=== PATIENT | female | born 1990 | race Caucasian/White ===

== ENCOUNTER 2016-10-28 17:07 | Inpatient (IN) | payer OTHER ==
[~2016-10-28] VITALS: Ht 160 cm; Wt 49.0 kg
--- NOTE | ~2016-10-28 | HC ---
[facility] [place] [address] CONSULTATION Name: BREANNE MORRIS Room #: 533-P ADM IN M.R.#: [id number] Admission: 10/28/16 Attend Phys: Tre Mcfadden MD Discharge: Date of : 90 Report #: [id number] THIS REPORT FOR: //name// CC: JERRY physician/PCP Tre Mcfadden DATE OF SERVICE: 10/29/2016 IDENTIFICATION: Psychiatric consultation is requested for depression and opioid dependence. HISTORY OF PRESENT ILLNESS: The patient is a 26-year-old single, unemployed female known to me from a consultation in September. She has a history of amphetamine and IV heroin dependence and this has been complicated by a lengthy hospital stay for endocarditis, paraspinal myositis, hepatitis, and encephalitis. During her consultation with me, the patient essentially denied all psychiatric complaints and declined psychiatric intervention. She did continue to follow up with Dr. Mckeon during her hospital stay here and he prescribed Prozac. The patient left hospital against medical advice 2 days ago and now returns back for further treatment. On interview, the patient is tolerating the Prozac but denies any benefit for it thus far. She admits that she relapsed on substances during her absence from the hospital. Today, she reports that she does not want to use any longer, but she does not wish to pursue inpatient rehabilitation. She states that she has tried that previously without benefit. She also reports that despite being in the hospital for several weeks, the lengthy period of sobriety was not beneficial and she immediately relapsed. She has also tried Suboxone in the past and she denies any particular benefit from that. Today, she declines any further psychiatric intervention. ALLERGIES: None. MEDICATIONS: Reviewed and include Prozac 40 mg daily. PAST MEDICAL HISTORY: Endocarditis, encephalitis, paraspinal myositis, hepatitis. FAMILY HISTORY: Noncontributory. SOCIAL HISTORY: The patient lives in her mother's basement. She has lost custody of her 5-year-old daughter. She smoked cigarettes in addition to abusing IV amphetamines and heroin. MENTAL STATUS EXAMINATION: Fair hygiene, polite, cooperative, good eye contact. Speech regular rate and rhythm. Thought process linear, logical, and coherent. [facility] [address] [place] [address] CONSULTATION Name: BREANNE MORRIS Room #: 533-P [facility] IN M.R.#: [id number] Admission: 10/28/16 Attend Phys: Tre Mcfadden MD Discharge: Date of : 90 Report #: [id number] No hallucinations or delusions. No suicidal or homicidal ideation. Alert and oriented x3. Insight and judgment fair. DIAGNOSES: 1. Opioid dependence. 2. Amphetamine dependence. 3. Major depressive disorder, recurrent, moderate. PLAN: Continue Prozac. Encouraged the patient to stay the course with Prozac and emphasized the length of time needed for antidepressants to begin having efficacy. Engage the patient in motivational interviewing regarding sobriety. She is in the contemplative stage at best. She declines inpatient rehabilitation despite our encouragement. I did provide her with outpatient resources for chemical dependency treatment. Thank you for this consultation. Please contact me with any further questions or concerns. By: [id number] Eda Werner MD /nt
--- NOTE | ~2016-10-28 | EKG ---
[place] [address] [facility] [place] [address] ELECTROCARDIOGRAM REPORT Name: BREANNE MORRIS Room #: 533-P ADM IN M.R.#: [id number] Admission: 10/28/16 Attend Phys: Tre Mcfadden MD Discharge: Date of : 90 Report #: [id number] THIS REPORT FOR: //name// 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 : 1990 Requested By: Hunter Santizo Order Number: [id number] MD: Sarkis Zavala Measurements Intervals [place] Rate: 73 P: 63 NV: 137 QRS: 64 QRSD: 86 T: 57 QT: 440 QTc: 485 Interpretive Statements Sinus rhythm Borderline T abnormalities, anterior leads Borderline prolonged QT interval Compared to ECG 10/11/2016 07:35:10 T-wave abnormality now present Electronically Signed On 10-29-2016 9:01:34 CDT by Sarkis Zavala [email or web address] <ELECTRONICALLY SIGNED> By: Sarkis Zavala MD, [facility] 10/29/1601 10 10 Sarkis Zavala MD, [facility] /EPI
--- NOTE | ~2016-10-28 | HC ---
[facility] [place] [address] CONSULTATION Name: BREANNE MORRIS Room #: 533-P [facility] IN M.R.#: [id number] Admission: 10/28/16 Attend Phys: Tre Mcfadden MD Discharge: 10/30/16 Date of : 90 Report #: [id number] THIS REPORT FOR: //name// CC: JERRY physician/PCP Tre Mcfadden REASON FOR CONSULTATION: Endocarditis treatment. 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 She had completed 5 weeks of IV antibiotic therapy by 10/26/2016. She then left A to go do drugs. She returned to the emergency room last evening with facial and lower extremity swelling. She had been doing reportedly heroin. When she left AMA, her IV was removed and she has not been on any antibiotics since. She restarted back on nafcillin. Now resting comfortably. She still complains of pain. PAST MEDICAL HISTORY, FAMILY HISTORY, AND SOCIAL HISTORY: Otherwise unchanged from previous consultation. REVIEW OF SYSTEMS: No nausea, vomiting, diarrhea, dysuria, or frequency. PHYSICAL EXAMINATION: VITAL SIGNS: Afebrile, hemodynamically stable. GENERAL: She was alert and cooperative. She had several excoriations to her face. Trace swelling to her face. LUNGS: Clear. HEART: Regular without murmur. ABDOMEN: Soft, nontender, no hepatosplenomegaly or mass. EXTREMITIES: Unremarkable. Still has complaints of radicular pain into the right leg, but examination was normal. LABORATORY STUDIES: Hemoglobin 10.8, white count 8.1, and platelet count 231,000. Sodium 136, potassium 3.7, bicarbonate 27, and creatinine 0.6. Liver function test normal. Troponin negative. BNP 1361. Urinalysis was positive for ketones. Sedimentation rate on 10/26, was 80. Electrocardiogram showed some mild T-wave changes. Chest x-ray, slight improvement in bilateral infiltrates. Drug screen positive for opioids and methamphetamines. IMPRESSION: treatment for tricuspid valve endocarditis with multiple pulmonary emboli, sedimentation rate remains elevated. The patient has significant drug addiction issues. We would recommend continuing IV antibiotic therapy here until she is set up for inpatient rehab. I feel it is not safe for the patient to be out continuing to use her IV drugs in this setting. At time of discharge, we will anticipate switching over to cephalexin. We will need to follow her chest x-ray, back symptoms and sedimentation rate. It is noted that [address] [address] CONSULTATION Name: BREANNE MORRIS Room #: 533-P [facility] IN M.R.#: [id number] Admission: 10/28/16 Attend Phys: Tre Mcfadden MD Discharge: 10/30/16 Date of : 90 Report #: [id number] during her last hospitalization, MRI scan performed in the lumbar spine showed nonspecific myositis. No evidence of vertebral diskitis or osteomyelitis. Given the fact that she continues to have pain, we will repeat this study. <ELECTRONICALLY SIGNED> By: Lloyd Brewster MD 11/02/16 0934 1110 2336 Lloyd Brewster MD /nt
--- NOTE | ~2016-10-28 | HC ---
[facility] [place] [address] CONSULTATION Name: BREANNE MORRIS Room #: 533-P [facility] IN M.R.#: [id number] Admission: 10/28/16 Attend Phys: Tre Mcfadden MD Discharge: 10/30/16 Date of : 90 Report #: [id number] THIS REPORT FOR: //name// CC: JERRY physician/PCP Tre Mcfadden DATE OF SERVICE: 10/29/2016 REASON FOR CONSULTATION: Endocarditis. HISTORY OF PRESENT ILLNESS: This is a very pleasant 26-year-old female who was diagnosed with endocarditis with septic shock on 09/19/2016. At that time, she initially presented to the emergency room with low back pain and was felt to be hypotensive, developed acute respiratory failure and required mechanical ventilation. She is a self-reported IV drug user and does carry a history of hepatitis. Back pain was diagnosed with a paraspinous myositis and was treated. She was identified as having endocarditis and infectious disease, was evaluated and antibiotic treatment was initiated. She did have right-sided emboli, which was without significant major morbidity identified in the past. The patient did leave hospitalization 2 days ago, but returned to the emergency room with lower extremity edema. She had used methamphetamine and heroin 48 hours prior to admission. She denies any chest pain, pressure, tightness, heaviness. PAST MEDICAL HISTORY: 1. IVDA. 2. Hepatitis. 3. Endocarditis as stated above. SOCIAL HISTORY: The patient is a cigarette smoker. Does not consume alcohol. Does use recreational drugs. She lives in her mother's basement with a boyfriend and a 5-year-old daughter and has lost her parenteral rights. LABORATORY DATA: Demonstrates H and H of 10.8 and 32.6. BUN is 9, creatinine is 0.6. BNP is 1361. Chest x-ray demonstrates improvement in patchy nodular infiltrates that were identified previously. Electrocardiogram demonstrates sinus rhythm, nonspecific ST-T wave changes. ALLERGIES: No known drug allergies. PHYSICAL EXAMINATION: GENERAL: A well-developed white female resting comfortably in no acute distress, somewhat disheveled in bed. VITAT SIGNS: Noted and are reviewed in her chart. [address] [address] CONSULTATION Name: BREANNE MORRIS Room #: 533-P DIS IN M.R.#: [id number] Admission: 10/28/16 Attend Phys: Tre Mcfadden MD Discharge: 10/30/16 Date of : 90 Report #: [id number] HEENT: Normocephalic, atraumatic. Pupils are equal, round, reactive to light and accommodation. Extraocular muscles are intact. Sclerae and conjunctivae are anicteric. NECK: JVD is normal. Carotid upstrokes are bilaterally symmetrical. No bruits are heard. No thyromegaly. No lymphadenopathy. LUNGS: Clear to auscultation. No wheezes, rhonchi or crackles. No CVA tenderness. CARDIAC: Demonstrates a grade 2-3/6 systolic murmur with respiratory variation noted in the right parasternal border. No diastolic murmurs are noted. ABDOMEN: Soft, nontender, nondistended. Normal bowel sounds. EXTREMITIES: Without cyanosis, clubbing or edema. Distal pulses are intact. DTR symmetrical. NEUROLOGIC: Cranial nerves 2-12 are grossly normal and symmetrical. PSYCHIATRIC: Alert, oriented with normal affect. SKIN: Warm and dry. IMPRESSION: 1. Methicillin-sensitive Staphylococcus aureus endocarditis on treatment with nafcillin doing fairly well. There are no significant signs of decompensation at this junction. In view of this, we will just monitor. 2. Elevated BNP. Multifactorial. Sepsis is a significant cause as is the increased fluid that may be present due to right-sided tricuspid insufficiencies. I am not going to proceed with anything further at this juncture. She is clinically breathing quite easily and in view of this, we would only diurese as needed. 3. Paraspinous myositis as above. 4. Hepatitis by history as per primary care. <ELECTRONICALLY SIGNED> By: Chon oMntes MD 11/02/16 1721 2142 0220 Chon Montes MD /nt
[~2016-10-28 17:07] MED LIST: ACETAMINOPHEN325 M1 PO; BACTRIM DS TAB1 EACH PO; COLACE 100 MG100 MG PO; DUONEB 2.5-0.5 M3 ML INH; FENTANYL PA50 MCG/HR TRANSDERM; FERREX 150 PLU1 EAC1 PO; GABAPENTIN 100100 MG PO; IBUPROFEN 600600 M1 PO; KEFLEX500 MG PO; NAFCILLIN 2 GM A2 G1 IV; NAPROSYN500 MG PO; NOHOMEMEDICATIONS; NORCO 5-325 TA1 EACH PO; OXYCODONE HCL 55 MG PO; PERCOCET 5-3251 EACH PO; PROZAC40 MG PO; ULTRAM 50MG TAB50 MG PO; VALIUM2 MG PO
[2016-10-28 18:01] LABS: URINE BILIRUBIN 1+ (Negative); URINE BLOOD NEGATIVE (Negative); URINE COLOR YELLOW; URINE GLUCOSE-RANDOM* NEGATIVE (Negative); URINE KETONES 1+ (Negative); URINE NITRITE NEGATIVE (Negative); URINE PROTEIN (DIPSTICK) TRACE (Negative)
[2016-10-28 18:03] LABS: ICTOTEST (BILI CONFIRMATORY) Negative (Negative)
[2016-10-28 19:22] LABS: ABSOLUTE NEUTROPHILS 6.2 thou/uL (1.4-8.2); BASOPHILS 0.5 % (0.0-2.0); EOSINOPHILS 0.5 % (0.0-3.0); HEMATOCRIT 32.6 % (37.0-47.0); LYMPHOCYTES 17.2 % (24.0-44.0); MCH 29.9 pg (26.0-34.0); MCHC 33.1 g/dL (28.0-37.0); MCV 90.3 fL (80.0-100.0); MONOCYTES 5.4 % (1.0-8.0); PLATELET COUNT 231 thou/uL (150-400); POLYS 76.4 % (36.0-66.0); RBC 3.61 mil/uL (4.20-5.00); RDW 21.4 % (10.5-14.5); WBC 8.1 thou/uL (4.0-11.0)
[2016-10-28 19:26] LABS: MANUAL DIFF NO
[2016-10-28 19:32] LABS: ANION GAP 9 mmol/L (7-16); BUN 9 mg/dL (7-18); CALCIUM 9.7 mg/dL (8.5-10.1); CHLORIDE 100 mmol/L (98-107); CO2 27 mmol/L (21-32); CREATININE 0.6 mg/dL (0.6-1.3); GLUCOSE 91 mg/dL (70-99); POTASSIUM 3.7 mmol/L (3.5-5.1); SODIUM 136 mmol/L (136-145)
[2016-10-28 19:34] LABS: HEMOGLOBIN 10.8 gm/dL (12.0-15.0)
[2016-10-28 19:42] LABS: ALBUMIN 2.6 g/dL (3.4-5.0); ALKALINE PHOSPHATASE 93 U/L (46-116); DIRECT BILIRUBIN 0.4 mg/dL (<0.1-0.3); NT-PRO BRAIN NAT PEPTIDE 1361 pg/mL (<300); SGOT 37 U/L (15-37); SGPT 17 U/L (30-65); TOTAL BILIRUBIN 1.6 mg/dL (<0.1-1.0); TOTAL PROTEIN 8.9 g/dL (6.4-8.2); TROPONIN-I < 0.04 ng/mL (<0.04-0.07)
[2016-10-28 19:55] LABS: AMP/METHAMP POSITIVE (Negative); BARBITURATES Negative (Negative); BENZODIAZEPINES Negative (Negative); COCAINE Negative (Negative); METHADONE Negative (Negative); OPIATES POSITIVE (Negative); PCP Negative (Negative); THC Negative (Negative)
[2016-10-30] MEDS ORDERED: CEPHALEXIN500 MG PO (13:02)
[2016-10-30] MEDS ORDERED: NEURONTIN 300300 M1 PO (13:38)
[2016-10-30] MEDS ORDERED: HYDROCODON-ACE1 EAC7 PO (13:38)
== END 2016-10-30 14:45 | disposition home or self-care (01) | DRG 306 ==
LOC: ER 17:07 → 5S 20:24 → EROBS 20:24 → 5S 21:21
PROVIDERS: Nurse Practitioner
DX: I07.9 Rheumatic tricuspid valve disease, unspecified (principal); J96.00 Acute respiratory failure, unspecified whether with hypoxia or hypercapnia; J18.9 Pneumonia, unspecified organism; G92 Toxic encephalopathy; F11.20 Opioid dependence, uncomplicated; F15.20 Other stimulant dependence, uncomplicated; K59.00 Constipation, unspecified; M54.9 Dorsalgia, unspecified; A49.02 Methicillin resistant Staphylococcus aureus infection, unspecified site; M60.88 Other myositis, other site; G89.29 Other chronic pain; K75.9 Inflammatory liver disease, unspecified; F32.9 Major depressive disorder, single episode, unspecified; F19.10 Other psychoactive substance abuse, uncomplicated; Z86.711 Personal history of pulmonary embolism; Z79.899 Other long term (current) drug therapy; Z79.2 Long term (current) use of antibiotics; Z79.01 Long term (current) use of anticoagulants
CPT/HCPCS: 10086

== ENCOUNTER 2016-11-01 15:08 | Emergency (ER) | payer OTHER ==
[~2016-11-01] VITALS: Ht 160 cm; Wt 49.9 kg
[~2016-11-01 15:08] MED LIST changes: +CEPHALEXIN500 MG PO; +HYDROCODON-ACE1 EAC7 PO; +NEURONTIN 300300 M1 PO
[2016-11-01 15:58] LABS: ABSOLUTE NEUTROPHILS 11.6 thou/uL (1.4-8.2); BASOPHILS 0.3 % (0.0-2.0); EOSINOPHILS 0.9 % (0.0-3.0); HEMATOCRIT 33.6 % (37.0-47.0); MCH 29.6 pg (26.0-34.0); MCHC 32.8 g/dL (28.0-37.0); MCV 90.3 fL (80.0-100.0); MONOCYTES 3.8 % (1.0-8.0); PLATELET COUNT 308 thou/uL (150-400); RBC 3.72 mil/uL (4.20-5.00); RDW 21.2 % (10.5-14.5); WBC 14.7 thou/uL (4.0-11.0)
[2016-11-01 15:59] LABS: MANUAL DIFF NO
[2016-11-01 16:02] LABS: CALCIUM 9.4 mg/dL (8.5-10.1); CREATININE 0.6 mg/dL (0.6-1.3); POTASSIUM 3.7 mmol/L (3.5-5.1)
[2016-11-01 16:13] LABS: ALBUMIN 2.7 g/dL (3.4-5.0); DIRECT BILIRUBIN 0.3 mg/dL (<0.1-0.3); TOTAL BILIRUBIN 1.3 mg/dL (<0.1-1.0); TOTAL PROTEIN 8.8 g/dL (6.4-8.2)
[2016-11-01 16:21] LABS: URINE BILIRUBIN NEGATIVE (Negative); URINE BLOOD NEGATIVE (Negative); URINE COLOR YELLOW; URINE GLUCOSE-RANDOM* NEGATIVE (Negative); URINE KETONES NEGATIVE (Negative); URINE LEUKOCYTES-REFLEX NEGATIVE (Negative); URINE PROTEIN (DIPSTICK) TRACE (Negative); URINE SPECIFIC GRAVITY 1.015 (1.003-1.035); URINE UROBILINOGEN 0.2 E.U./dl (0.2-1.0)
[2016-11-01] MEDS ORDERED: PERCOCET 5-3251 EACH PO (17:56)
== END 2016-11-01 18:36 | disposition home or self-care (01) ==
LOC: ER 15:08
PROVIDERS: Emergency Medicine
DX: D72.829 Elevated white blood cell count, unspecified (principal); I38 Endocarditis, valve unspecified; R20.2 Paresthesia of skin; Z86.2 Personal history of diseases of the blood and blood-forming organs and certain disorders involving the immune mechanism; R65.21 Severe sepsis with septic shock; F17.210 Nicotine dependence, cigarettes, uncomplicated

== ENCOUNTER 2016-11-10 12:24 | Inpatient (IN) | payer OTHER ==
[~2016-11-10] VITALS: Ht 160 cm; Wt 49.9 kg
[2016-11-10] VITALS (12 sets, daily range): BP systolic 95–114; BP diastolic 58–101
--- NOTE | ~2016-11-10 | 2DMMODE ---
[facility] [place] [address] 2 D/M-MODE ECHOCARDIOGRAM Name: BREANNE MORRIS Room #: 243-P ADM IN M.R.#: [id number] Admission: 11/10/16 Attend Phys: Thuy Onofre Discharge: Date of : 89 Date of Service: 11/11/16 1111 Report #: [id number] THIS REPORT FOR: //name// APPROVED REPORT Study performed: 11/11/2016 09:25:04 EXAM: Comprehensive 2D, Doppler, and color-flow Echocardiogram Patient Location: Bedside Blood Pressure: 86/53 mmHg HR: 102 bpm Other Information Study Quality: Excellent Indications Infection:Rule out subacute bacterial endocarditis Tricuspid Valve TR Peak Tuan.: 2.45 m/s TR Peak Gr.: 24.09 mmHg Left Ventricle The left ventricle is normal size. There is normal LV segmental wall motion. There is normal left ventricular wall thickness. The left ventricular systolic function is normal. The left ventricular ejection fraction is within the normal range. LVEF is 55-60%. Diastolic function was not assessed. Right Ventricle The right ventricle is normal size. The right ventricular systolic function is normal. Atria The left atrium size is normal. Right atrium is mildly dilated. Aortic Valve The aortic valve is normal in structure. Mitral Valve The mitral valve is normal in structure. [facility] Mamie [place] [employer] [address] 2 D/M-MODE ECHOCARDIOGRAM Name: BREANNE MORRIS Room #: 243-P ADM IN M.R.#: [id number] Admission: 11/10/16 Attend Phys: Thuy Onofre Discharge: Date of : 89 Date of Service: 11/11/16 1111 Report #: [id number] Tricuspid Valve The tricuspid valve is normal in structure. Severe tricuspid regurgitation. There is severe tricuspid regurgitation. The right atrial pressure is estimated at 5 mmHg. There is no pulmonary hypertension. Large tricuspid valve vegetation is present. Vegetation is independently mobile. Pulmonic Valve The pulmonary valve is normal in structure. Great Vessels IVC is normal in size and collapses >50% with inspiration. <Conclusion> The left ventricle is normal size. The left ventricular systolic function is normal. The left ventricular ejection fraction is within the normal range. LVEF is 55-60%. Right atrium is mildly dilated. Large tricuspid valve vegetation is present. Vegetation is independently mobile and appears mobility may have increased somewhat. Severe tricuspid regurgitation. There is severe tricuspid regurgitation. The right atrial pressure is estimated at 5 mmHg. There is no pulmonary hypertension. <ELECTRONICALLY SIGNED> By: Chon Montes MD 11/11/16 1111 1111 1111 Chon Montes MD /INF
--- NOTE | ~2016-11-10 | HC ---
[facility] [place] [address] CONSULTATION Name: BREANNE MORRIS Room #: 440-P ADM IN M.R.#: [id number] Admission: 11/10/16 Attend Phys: Thuy Pierre Discharge: Date of : 90 Report #: [id number] THIS REPORT FOR: //name// CC: JERRY physician/PCP Thuy Pierre DATE OF SERVICE: 11/12/2016 HISTORY OF PRESENT ILLNESS: We were asked by Dr. Brewster to see the patient. I have seen the patient in consultation twice already this year for tricuspid valve endocarditis. The first time the patient was in the Intensive Care Unit on the ventilator with severe pulmonary dysfunction related to septic embolic from the tricuspid valve. The patient did respond to medical management; however, for what I recall was a methicillin sensitive Staph. Second consultation was approximately a month ago. The patient was on the floor and had rebounded dramatically, in fact the patient's mood seemed a bit elevated at that time, there was no evidence of active infection and the patient was receiving in-hospital IV antibiotics. Subsequently, the patient left the hospital against medical claims representative. She was home approximately 11 days. Apparently during that time, the patient did some IV heroin. The patient claims she used clean needles and stayed on the prescribed oral Keflex. The patient returned to the emergency department with shortness of breath on November 10. The patient reported shortness of breath with exertion, improved with sitting still. Had some rib pain with deep inspirations. No fever, no chills, no embolic phenomena in the hands or noted by the patient. There was no history by the patient of important fluid retention. In fact, the patient notes that her weight has decreased significantly. 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 HOME MEDICATIONS: Included Keflex, gabapentin. ALLERGIES: None known. SOCIAL HISTORY: Positive for tobacco use and recreational drug use. FAMILY HISTORY: Not significant. REVIEW OF SYSTEMS: CONSTITUTIONAL: Denies fever or chills. No significant weight increase. EYES: Wears glasses. No eye pain, no vision changes. [facility] [address] [place] [address] CONSULTATION Name: BREANNE MORRIS Room #: 440-P [facility] IN M.R.#: [id number] Admission: 11/10/16 Attend Phys: Thuy Pierre Discharge: Date of : 90 Report #: [id number] HEENT: No hearing problems, drainage from nose or ears. No sore throat, neck stiffness. RESPIRATORY: No recent cough, hemoptysis, sputum production. As mentioned, the patient did have some shortness of breath leading to admission. CARDIAC: The patient did note some tachycardia at home. No anginal chest pain. GASTROINTESTINAL: No nausea, vomiting, diarrhea, blood in stool. GENITOURINARY: No burning, frequency, blood in urine. MUSCULOSKELETAL: No bone or joint pain. SKIN: No rash or infection. NEUROLOGIC: No motor or sensory dysfunction. PHYSICAL EXAMINATION: VITAL SIGNS: Temperature 36.6, pulse rate 98, respiratory rate 14, blood pressure 101/67, O2 sat 99 on room air. HEENT: No scleral icterus, no arcus. Pupils are round, equal. Gaze conjugate. No conjunctival hemorrhage, no evidence of conjunctival embolization. No nasal or oral injection. NECK: No lymphadenopathy, no bruit. CHEST: Clear to auscultation. HEART: Rhythm regular. ABDOMEN: Soft, no mass, no tenderness. EXTREMITIES: Trace edema. No clubbing or cyanosis. SKIN: Warm and dry, normal turgor. NEUROLOGIC: No motor or sensory dysfunction. Oriented and appropriate. PSYCHIATRIC: A flat affect with mood sort of deflated, definitely not as elevated as when I saw her last in the hospital without the pressured speech of the last visit. MUSCULOSKELETAL: No bone or joint dyssymmetry or deformity. SKIN: No rash or infection. No obvious embolic phenomena in what I can see of the nail beds and hand. RADIOLOGIC: I reviewed the CT scan with Dr. Calhoun, who had read the report. It appears that the synopsis is that this is evolution of the previous changes rather than evidence for new emboli. In some of the areas that were emboli, there are larger cavities. In other words, there is progression of changes which may make the x-ray look worse rather than evidence for no acute changes. I have not looked at the echo personally but I have read the report and it appears that the vegetation is similar and that there is tricuspid incompetence. ASSESSMENT: The patient has tricuspid valve endocarditis with vegetation. I have informed the patient that the vegetation will not "go way" with medical management. Surgery in this setting would be to debris the valve and repair it if possible with what is left after . Most likely, we would be excising the tricuspid valve and leaving her with the same sort of tricuspid incompetence that she has now. I certainly would not be enthusiastic about putting a new [facility] [address] [place] [address] CONSULTATION Name: BREANNE MORRIS Room #: 440-P ADM IN M.R.#: [id number] Admission: 11/10/16 Attend Phys: Thuy Pierre Discharge: Date of : 90 Report #: [id number] prosthesis in unless the patient had been "clean" for at least a year, particularly with the recent recrudescence in behavior. All of this was reviewed with the patient. I have discussed the case and detail with Dr. Brewster. From my point of view, there appears to be no new evidence for acute intervention. If the patient had evidence for failure of medical management, persistent bacteremia, persistent positive blood cultures, persistent pulmonary emboli, then surgery would be appropriate. At this point, I do not believe that any of these are present. Thank you for the consult. By: 0934 1623 David Sawyer MD /nt
--- NOTE | ~2016-11-10 | HC ---
[facility] [place] [address] CONSULTATION Name: BREANNE MORRIS Room #: 440-P ADM IN M.R.#: [id number] Admission: 11/10/16 Attend Phys: Thuy Pierre Discharge: Date of : 90 Report #: [id number] THIS REPORT FOR: //name// CC: JERRY physician/PCP Thuy Pierre REASON FOR CONSULTATION: The patient returns with shortness of breath. She has a history of endocarditis. HISTORY OF PRESENT ILLNESS: The patient is a 26-year-old IV drug user developed tricuspid valve endocarditis, methicillin-susceptible Staph aureus with multiple septic pulmonary emboli and paraspinous myositis. She completed approximately 6 weeks of IV antibiotic therapy. Now on Keflex. Has been on and off heroin since initial diagnosis. Actually left A through her hospital stay to do IV drugs and then returned. She was home on cephalexin 1 gram b.i.d. Reports rather acute onset of shortness of breath and dyspnea on exertion. No fever, chills or sweats. Improvement in her back pain. Still has some diverticular features right buttock region. Denies any pleuritic chest pain. No nausea, vomiting or diarrhea. No dysuria or frequency. No peripheral edema. No PND or orthopnea. ALLERGIES: None. MEDICATIONS: As noted on OCT, now on . PAST MEDICAL HISTORY, FAMILY HISTORY, SOCIAL HISTORY: Unchanged from her previous history and physical and that of her previous consultation. REVIEW OF SYSTEMS: Noted above. PHYSICAL EXAMINATION: VITAL SIGNS: She is afebrile, hemodynamically stable. GENERAL: She is alert and cooperative, ambulatory. HEENT: Unremarkable. NECK: Supple. LUNGS: Clear. HEART: Regular, without appreciable murmur. ABDOMEN: Soft, nontender, no hepatosplenomegaly or mass appreciated. EXTREMITIES: Unremarkable. LABORATORY STUDIES: Sodium 138, potassium 4.2, bicarbonate 25, creatinine 0.6. Liver function test normal. Hemoglobin 11.6, platelet count 179,000, white count 6.3, 51% segs, 37% lymphs. Lactate 1.2, CPK [address] scan of the chest showed progression of bilateral pulmonary nodules with infiltrate and pulmonary abscesses. I was unable to pull up the films to review myself, but by report, it seems like these are not resolving. Echocardiogram is pending. [address] [address] CONSULTATION Name: BREANNE MORRIS Room #: 440-P [facility] IN M.R.#: [id number] Admission: 11/10/16 Attend Phys: Carrollparul Gerardo Pierre Discharge: Date of : 90 Report #: [id number] Sedimentation rate 65. IMPRESSION: Tricuspid valve endocarditis, methicillin-susceptible Staphylococcus aureus in IV drug user. RECOMMENDATION: Continuing IV antibiotic therapy following a repeat echocardiogram. We will decide on treatment following a review of her echocardiogram. <ELECTRONICALLY SIGNED> By: Lloyd Brewster MD 11/11/16 1625 1133 1428 Lloyd Brewster MD /nasir
[2016-11-10] MEDS ORDERED: PROZAC10 MG PO (13:12)
[2016-11-10 14:05] LABS: ABSOLUTE NEUTROPHILS 8.8 thou/uL (1.4-8.2); BASOPHILS 0.8 % (0.0-2.0); EOSINOPHILS 0.6 % (0.0-3.0); HEMATOCRIT 39.2 % (37.0-47.0); HEMOGLOBIN 12.9 gm/dL (12.0-15.0); LYMPHOCYTES 23.7 % (24.0-44.0); MCH 29.5 pg (26.0-34.0); MCHC 32.8 g/dL (28.0-37.0); MCV 89.8 fL (80.0-100.0); MONOCYTES 7.2 % (1.0-8.0); PLATELET COUNT 285 thou/uL (150-400); POLYS 67.7 % (36.0-66.0); RBC 4.36 mil/uL (4.20-5.00); RDW 18.8 % (10.5-14.5)
[2016-11-10 14:13] LABS: CALCIUM 10.5 mg/dL (8.5-10.1); CREATININE 0.7 mg/dL (0.6-1.3); POTASSIUM 4.5 mmol/L (3.5-5.1)
[2016-11-10 14:16] LABS: MANUAL DIFF NO
[2016-11-10 18:47] LABS: APTT 25.4 Seconds (24.5-32.8); PROTIME 10.7 Seconds (9.3-11.4)
[2016-11-10 18:53] LABS: MAGNESIUM 2.2 mg/dL (1.8-2.4); TROPONIN-I < 0.04 ng/mL (<0.04-0.07)
[2016-11-11] VITALS (22 sets, daily range): BP systolic 81–108; BP diastolic 44–77
[2016-11-11 04:01] LABS: ABSOLUTE NEUTROPHILS 3.2 thou/uL (1.4-8.2); BASOPHILS 0.5 % (0.0-2.0); EOSINOPHILS 1.8 % (0.0-3.0); HEMATOCRIT 35.4 % (37.0-47.0); HEMOGLOBIN 11.6 gm/dL (12.0-15.0); LYMPHOCYTES 37.4 % (24.0-44.0); MCH 29.8 pg (26.0-34.0); MCHC 32.8 g/dL (28.0-37.0); MONOCYTES 9.1 % (1.0-8.0); POLYS 51.2 % (36.0-66.0); RBC 3.89 mil/uL (4.20-5.00); WBC 6.3 thou/uL (4.0-11.0)
[2016-11-11 04:03] LABS: MANUAL DIFF NO; PLATELET COUNT 179 thou/uL (150-400)
[2016-11-11 04:10] LABS: ALBUMIN 2.3 g/dL (3.4-5.0); CREATININE 0.6 mg/dL (0.6-1.3); MAGNESIUM 1.8 mg/dL (1.8-2.4); POTASSIUM 4.2 mmol/L (3.5-5.1); TOTAL PROTEIN 7.3 g/dL (6.4-8.2)
[2016-11-12 04:20] VITALS: BP 115/70
[2016-11-12 07:48] VITALS: BP 101/67
[2016-11-12 11:32] VITALS: BP 115/77
[2016-11-12 16:21] VITALS: BP 125/85
[2016-11-12 19:30] VITALS: BP 130/91
[2016-11-13 04:15] VITALS: BP 121/82
[2016-11-13 08:00] VITALS: BP 124/79
[2016-11-13] MEDS ORDERED: ASPIR 8181 MG PO (10:36)
[2016-11-13] MEDS ORDERED: TOPROL XL25 MG PO (10:36)
[2016-11-13] MEDS ORDERED: LORTAB 5-325 M1 EACH PO (10:36)
[2016-11-13 10:51] VITALS: BP 124/79
[2016-11-13 11:49] VITALS: BP 128/95
== END 2016-11-13 12:45 | disposition home or self-care (01) | DRG 871 ==
LOC: ER 12:24 → ICU 17:05 → EROBS 17:05 → ICU 19:08 → 4S 11-11 13:40
PROVIDERS: Emergency Medicine; Hospitalist
DX: A41.9 Sepsis, unspecified organism (principal); I26.90 Septic pulmonary embolism without acute cor pulmonale; I33.0 Acute and subacute infective endocarditis; G93.41 Metabolic encephalopathy; J18.9 Pneumonia, unspecified organism; R65.21 Severe sepsis with septic shock; G89.29 Other chronic pain; D64.9 Anemia, unspecified; M60.88 Other myositis, other site; B95.61 Methicillin susceptible Staphylococcus aureus infection as the cause of diseases classified elsewhere; F17.210 Nicotine dependence, cigarettes, uncomplicated; K75.9 Inflammatory liver disease, unspecified; F11.10 Opioid abuse, uncomplicated; Z87.01 Personal history of pneumonia (recurrent); Z86.711 Personal history of pulmonary embolism; Z86.19 Personal history of other infectious and parasitic diseases; Z86.79 Personal history of other diseases of the circulatory system; Z79.899 Other long term (current) drug therapy; Z79.82 Long term (current) use of aspirin; Z79.2 Long term (current) use of antibiotics
CPT/HCPCS: 10078; 10100

== ENCOUNTER 2016-12-23 20:00 | Inpatient (IN) | payer OTHER ==
[~2016-12-23] VITALS: Ht 152.4 cm; Wt 55.0 kg
--- NOTE | ~2016-12-23 | HC ---
[facility] [place] [address] CONSULTATION Name: BREANNE MORRIS Room #: 418-P [facility] IN M.R.#: [id number] Admission: 12/23/16 Attend Phys: Thuy Pierre Discharge: 12/28/16 Date of : 90 Report #: [id number] THIS REPORT FOR: //name// CC: FAM physician/PCP Thuy Pierre DATE OF SERVICE: 12/24/2016 DATE OF SERVICE: 12/24/2016. PRIMARY CARE PHYSICIAN: Thuy Pierre MD REASON FOR CONSULTATION: Dyspnea and chest pain. HISTORY OF PRESENT ILLNESS: The patient is a 26-year-old white female who presents to the emergency room again with chest pain. A pulmonary consultation was requested. The patient had been previously seen by this physician from a recent hospitalization in September and October for multiple septic pulmonary emboli due to intravenous drug injection. 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 The patient has done well on prolonged antibiotics. However, she has started doing heroin injection again recently. Aside from chest pain, she denies any productive cough, hemoptysis. 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 ALLERGIES: None to medications. FAMILY HISTORY: Noncontributory. SOCIAL HISTORY: As mentioned above. She is again back using IV heroin. She smokes cigarettes. She smokes about a pack a day. REVIEW OF SYSTEMS: As mentioned above, otherwise 10-point systems reviewed and negative. PHYSICAL EXAMINATION: GENERAL: She is awake, alert, in no apparent distress. VITAL SIGNS: Temperature is 98 degrees Fahrenheit, pulse is 100, respiratory [facility] [address] [place] [address] CONSULTATION Name: BREANNE MORRIS Room #: 418-P [facility] IN .R.#: [id number] Admission: 12/23/16 Attend Phys: Thuy Pierre Discharge: 12/28/16 Date of : 90 Report #: [id number] rate is , blood pressure is 100/53 mmHg, and saturation 100%. HEENT: Normocephalic and atraumatic. NECK: Supple, without lymphadenopathy or thyromegaly. CHEST: Breath sounds are clear without any rales or wheezes. CARDIOVASCULAR: Normal S1, S2. No murmurs or gallop. There is no JVD. There is no carotid bruit. Pulses are 2+/4+ bilaterally. ABDOMEN: Soft, nontender, no organomegaly or masses felt. GENITOURINARY AND RECTAL: Deferred. EXTREMITIES: No edema, cyanosis or clubbing. LABORATORY AND DIAGNOSTIC DATA: CT chest was reviewed. It shows multiple small pulmonary nodules and small cavitations noted, otherwise much improved from initial chest CT, overall no significant change from a chest CT performed on 11/10/2016. No consolidation is noted. D-dimer is greater than 35. Electrolytes are normal. WBC is 13,700; hemoglobin is 11.5; platelets 96,000; bandemia 44%. IMPRESSION: 1. Progressive dyspnea, chest pain in this 26-year-old white female likely related to recurrent endocarditis, along with septic emboli. Infectious diseases has been consulted. She is currently on antibiotics. 2. Intravenous drug abuse with heroin. 3. Noncompliant with medical care. RECOMMENDATIONS: We will defer antibiotics to infectious disease. Her chest symptoms will improve with compliance with medication along with abstinence from IV drug abuse. Otherwise, no further recommendation. Thank you for this consultation. <ELECTRONICALLY SIGNED> By: Camron Aldrich MD 12/29/16 1125 1420 2047 Camron Aldrich MD /nt
--- NOTE | ~2016-12-23 | EKG ---
[address] [address] ELECTROCARDIOGRAM REPORT Name: BREANNE MORRIS Room #: 418-P ADM IN M.R.#: [id number] Admission: 12/23/16 Attend Phys: Thuy Pierre Discharge: Date of : 90 Report #: [id number] THIS REPORT FOR: //name// 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
--- NOTE | ~2016-12-23 | HC ---
[facility] [place] [address] CONSULTATION Name: BREANNE MORRIS Room #: 418-P ADM IN M.R.#: [id number] Admission: 12/23/16 Attend Phys: Thuy Pierre Discharge: Date of : 90 Report #: [id number] THIS REPORT FOR: //name// CC: JERRY physician/PCP Abel Mcfarlane REASON FOR CONSULTATION: I was asked to evaluate concerning tricuspid valve endocarditis, methicillin-susceptible Staph aureus with multiple septic pulmonary emboli who presents now with an increasing right pleuritic chest pain and fever for the last 24 hours. She is a heroin addict, who was diagnosed in September with tricuspid valve endocarditis and multiple pulmonary emboli along with L3, L4, S1, S2 paraspinal myositis. She had been treated with prolonged course of IV antibiotic therapy. These therapies have been interrupted by the patient leaving [place]. She has returned several times with increased pain. We have cleared her blood stream as of 09/21/2016. She has had extensive bilateral pulmonary disease from her embolic process. Her last hospitalization was on 11/10/2016. There, she was diagnosed with progressive pulmonary lesions but no new areas. Cardiovascular surgery evaluation felt that this was evolution of previous emboli and no current indication for a valvular surgery. She finished her course of IV antibiotic therapy during that admission and was dismissed on cephalexin. Unclear if the patient actually took the cephalexin after discharge. She has been back using heroin. Now presents with current issues. ALLERGIES: None. MEDICATIONS: As noted on her MAR. She was started on ceftriaxone last evening. PAST MEDICAL HISTORY, FAMILY HISTORY AND SOCIAL HISTORY: Unchanged from her previous consultation. REVIEW OF SYSTEMS: She has had some nausea. She was able to eat this morning. She had 1 episode of emesis yesterday. She reported chills and sweats. She has right-sided pleuritic chest discomfort along with upper abdominal discomfort on the right. No diarrhea. No dysuria or frequency. No new rashes. She has multiple tattoos. She has had some tenderness in the left axilla over the last 48 hours. PHYSICAL EXAMINATION: VITAL SIGNS: Afebrile, hemodynamically initially was tachycardic up to 140 range. She has been in sinus tachycardia, now down to 110. Blood pressure 97/58 with a MAP of 63, O2 saturation normal on room air. HEENT: Unremarkable. NECK: Supple. Multiple tattoos. EXTREMITIES: She had multiple tracts to her upper extremities. She had tender left axilla with small node. No evidence of cellulitis or lymphangitis [address] [address] CONSULTATION Name: BREANNE MORRIS Room #: 418-P [facility] IN M.R.#: [id number] Admission: 12/23/16 Attend Phys: Thuy Pierre Discharge: Date of : 90 Report #: [id number] identified otherwise in the left upper extremity. LUNGS: Decreased breath sounds on the right base. The patient was splinting some on deep inspiration. HEART: Tachycardic and regular, could not appreciate any murmur. ABDOMEN: Soft. She was tender mostly in the right upper quadrant to right mid lateral quadrant, no rebound. EXTREMITIES: Otherwise unremarkable. NEUROLOGIC: Normal. LABORATORY STUDIES: Sodium 136, potassium 4.2, bicarbonate 27, creatinine 0.6, AST 91, bilirubin 4.5, alkaline phosphatase 75, ALT 92, lactate 2.7 last evening, troponin negative. BNP less than 5. INR 1.5. Hemoglobin 10.5, white count 15.2, platelet count 83,000, 44% bands. Sed rate 11. Urinalysis pending. Blood cultures pending. Chest x-ray: No acute infiltrate. Right upper extremity PICC and SVC. CT scan of the chest: No evidence of pulmonary emboli. She has mediastinal adenopathy, hepatosplenomegaly. Left axillary lymph node, several cavitary lung lesions. The one lesion in the right lung measures 1.9 x 1.6 cm with slightly thicker wall than previous image. Overall, fairly similar study except a new pleural base density in the right upper lung laterally. IMPRESSION: A 26-year-old heroin addict with tricuspid valve endocarditis who presents with pleuritic chest pain and probable new embolic lesion. She has evidence of hepatosplenomegaly leukocytosis with marked left shift, thrombocytopenia, likely related to disseminated intravascular coagulation, has evidence of hepatitis noting now bilirubin elevated. Her previous studies in September noted that she was hepatitis B, C and HIV negative. Some of her liver disease may be related to tricuspid insufficiency. She does not, however, have significant peripheral edema at this time. RECOMMENDATION: Will continue IV antibiotic therapy. Await repeat blood cultures. Have Cardiology reevaluate. I still do not think she is a good surgical candidate at this time. She will need further attempts at drug rehab. Given her history and her significant disease process, I feel the inpatient rehab would be the best option if at all possible. <ELECTRONICALLY SIGNED> By: Lloyd Brewster MD 12/25/16 1047 0857 1347 Lloyd Brewster MD /nt
[~2016-12-23 20:00] MED LIST changes: +ASPIR 8181 MG PO; +LORTAB 5-325 M1 EACH PO; +PROZAC10 MG PO; +TOPROL XL25 MG PO
[2016-12-23 20:04] VITALS: BP 96/51
[2016-12-23 21:46] LABS: HEMATOCRIT 33.6 % (37.0-47.0); HEMOGLOBIN 11.5 gm/dL (12.0-15.0); MCH 30.6 pg (26.0-34.0); MCHC 34.1 g/dL (28.0-37.0); MCV 89.8 fL (80.0-100.0); RBC 3.75 mil/uL (4.20-5.00); WBC 13.7 thou/uL (4.0-11.0)
[2016-12-23 21:47] LABS: MANUAL DIFF YES
[2016-12-23 22:00] LABS: ANION GAP 6 mmol/L (7-16); BUN 15 mg/dL (7-18); CALCIUM 8.7 mg/dL (8.5-10.1); CHLORIDE 99 mmol/L (98-107); CO2 28 mmol/L (21-32); CREATININE 0.8 mg/dL (0.6-1.0); GLUCOSE 101 mg/dL (74-106); INR 1.5; POTASSIUM 3.8 mmol/L (3.5-5.1); PROTIME 15.5 Seconds (9.3-11.4); SODIUM 133 mmol/L (136-145)
[2016-12-23 22:13] LABS: ALBUMIN 2.7 g/dL (3.4-5.0); ALKALINE PHOSPHATASE 75 U/L (46-116); NT-PRO BRAIN NAT PEPTIDE < 5 pg/mL (<300); SGOT 91 U/L (15-37); SGPT 92 U/L (30-65); TOTAL BILIRUBIN 4.5 mg/dL (<0.1-1.0); TOTAL PROTEIN 6.6 g/dL (6.4-8.2); TROPONIN-I < 0.04 ng/mL (<0.04-0.07)
[2016-12-23 22:31] LABS: ABSOLUTE NEUTROPHILS 13.4 thou/uL (1.4-8.2); TOTAL CELL COUNT 100
[2016-12-23 22:32] LABS: PLATELET COUNT 96 thou/uL (150-400)
[2016-12-23 22:33] LABS: PLATELET ESTIMATE DECREASED; POLYCHROMASIA SLIGHT
[2016-12-23 22:55] LABS: ESR (SEDRATE) 11 mm/hr (0-20)
[2016-12-23 23:09] VITALS: BP 78/44
[2016-12-23 23:30] VITALS: BP 76/41
[2016-12-24] VITALS (20 sets, daily range): BP systolic 76–125; BP diastolic 37–62
[2016-12-24 04:35] LABS: HEMATOCRIT 30.9 % (37.0-47.0); HEMOGLOBIN 10.5 gm/dL (12.0-15.0); MCH 30.6 pg (26.0-34.0); MCHC 33.9 g/dL (28.0-37.0); MCV 90.4 fL (80.0-100.0); RBC 3.42 mil/uL (4.20-5.00); RDW 14.8 % (10.5-14.5); WBC 15.2 thou/uL (4.0-11.0)
[2016-12-24 04:53] LABS: CALCIUM 7.7 mg/dL (8.5-10.1); CREATININE 0.6 mg/dL (0.6-1.0); POTASSIUM 4.2 mmol/L (3.5-5.1)
[2016-12-25] VITALS: BP 104/53
[2016-12-25 04:00] VITALS: BP 93/59
[2016-12-25 05:51] LABS: HEMATOCRIT 29.2 % (37.0-47.0); HEMOGLOBIN 9.8 gm/dL (12.0-15.0); MCH 31.2 pg (26.0-34.0); MCHC 33.4 g/dL (28.0-37.0); MCV 93.5 fL (80.0-100.0); RBC 3.12 mil/uL (4.20-5.00); RDW 15.3 % (10.5-14.5); WBC 10.7 thou/uL (4.0-11.0)
[2016-12-25 06:06] LABS: ALBUMIN 2.2 g/dL (3.4-5.0); CALCIUM 8.1 mg/dL (8.5-10.1); CREATININE 0.7 mg/dL (0.6-1.0); POTASSIUM 3.4 mmol/L (3.5-5.1); TOTAL BILIRUBIN 1.9 mg/dL (<0.1-1.0); TOTAL PROTEIN 5.7 g/dL (6.4-8.2)
[2016-12-25 07:16] VITALS: BP 105/69
[2016-12-25 15:56] VITALS: BP 111/70
[2016-12-25 20:00] VITALS: BP 101/54
[2016-12-26 07:33] VITALS: BP 102/70
[2016-12-26 15:44] VITALS: BP 112/75
[2016-12-26 20:00] VITALS: BP 115/86
[2016-12-27 04:13] LABS: HEMATOCRIT 30.3 % (37.0-47.0); HEMOGLOBIN 10.1 gm/dL (12.0-15.0); MCH 30.9 pg (26.0-34.0); MCHC 33.4 g/dL (28.0-37.0); MCV 92.6 fL (80.0-100.0); PLATELET COUNT 113 thou/uL (150-400); RBC 3.27 mil/uL (4.20-5.00); RDW 15.1 % (10.5-14.5); WBC 7.1 thou/uL (4.0-11.0)
[2016-12-27 04:14] LABS: MANUAL DIFF YES
[2016-12-27 04:30] VITALS: BP 119/72
[2016-12-27 04:33] LABS: ALBUMIN 2.1 g/dL (3.4-5.0); CREATININE 0.5 mg/dL (0.6-1.0); TOTAL BILIRUBIN 1.1 mg/dL (<0.1-1.0); TOTAL PROTEIN 5.7 g/dL (6.4-8.2)
[2016-12-27 04:54] LABS: POTASSIUM 2.9 mmol/L (3.5-5.1)
[2016-12-27 07:17] VITALS: BP 119/80
[2016-12-27 08:23] LABS: ABSOLUTE NEUTROPHILS 3.8 thou/uL (1.4-8.2); ATYPICAL LYMPHS 3 %; TOTAL CELL COUNT 100
[2016-12-27 08:25] LABS: ANISOCYTOSIS SLIGHT; MYELOCYTES 2 %
[2016-12-27 16:34] VITALS: BP 115/73
[2016-12-27 20:00] VITALS: BP 115/82
[2016-12-28 04:00] VITALS: BP 120/88
[2016-12-28 07:47] VITALS: BP 114/81
[2016-12-28] MEDS ORDERED: VISTARIL 25 MG25 M1 PO (09:40)
[2016-12-28] MEDS ORDERED: HYDROCODON-ACE1 EAC7 PO (11:28)
[2016-12-28] MEDS ORDERED: KEFLEX500 MG PO (11:28)
[2016-12-28 11:36] VITALS: BP 114/81
[2016-12-28 11:46] LABS: URINE BILIRUBIN NEGATIVE (Negative); URINE BLOOD NEGATIVE (Negative); URINE COLOR YELLOW; URINE GLUCOSE-RANDOM* NEGATIVE (Negative); URINE KETONES NEGATIVE (Negative); URINE NITRITE NEGATIVE (Negative); URINE PROTEIN (DIPSTICK) NEGATIVE (Negative); URINE SPECIFIC GRAVITY 1.015 (1.003-1.035)
== END 2016-12-28 12:10 | disposition home or self-care (01) | DRG 871 ==
LOC: ER 20:00 → 4E 22:27 → EROBS 22:27 → ICU 22:27 → 2N 22:52 → ICU 23:11 → 4E 12-24 11:11
PROVIDERS: Emergency Medicine; Family Medicine; Hospitalist; Nurse Practitioner Family
PROC: 02HV33Z Insertion of Infusion Device into Superior Vena Cava, Percutaneous Approach (ICD-10-PCS; principal; 2016-12-23)
PROC: B548ZZA Ultrasonography of Superior Vena Cava, Guidance (ICD-10-PCS; principal; 2016-12-23)
DX: A41.9 Sepsis, unspecified organism (principal); I26.90 Septic pulmonary embolism without acute cor pulmonale; I33.0 Acute and subacute infective endocarditis; R65.21 Severe sepsis with septic shock; F11.20 Opioid dependence, uncomplicated; M60.88 Other myositis, other site; G89.29 Other chronic pain; K75.9 Inflammatory liver disease, unspecified; F17.210 Nicotine dependence, cigarettes, uncomplicated; A49.01 Methicillin susceptible Staphylococcus aureus infection, unspecified site; D69.6 Thrombocytopenia, unspecified; F32.9 Major depressive disorder, single episode, unspecified; R16.0 Hepatomegaly, not elsewhere classified; Z79.899 Other long term (current) drug therapy; Z91.19 Patient's noncompliance with other medical treatment and regimen; Z87.01 Personal history of pneumonia (recurrent); Z71.6 Tobacco abuse counseling; Z86.711 Personal history of pulmonary embolism; Z79.01 Long term (current) use of anticoagulants
CPT/HCPCS: 10078; 10183; 27000

== ENCOUNTER → 2017-03-31 | Outpatient (CLI) | payer OTHER ==
[~2017-03-31] MED LIST changes: +VISTARIL 25 MG25 M1 PO
== END ==
LOC: RAD 08:36
DX: I36.8 Other nonrheumatic tricuspid valve disorders (principal)

== ENCOUNTER 2017-09-03 06:18 | Inpatient (IN) | payer OTHER ==
[~2017-09-03] VITALS: Ht 157.5 cm; Wt 56.2 kg
--- NOTE | ~2017-09-03 | HC ---
[facility] [place] [address] CONSULTATION Name: BREANNE MORRIS ONI Room #: 443-P [facility] IN .R.#: [id number] Admission: 09/03/17 Attend Phys: Tre Mcfadden MD Discharge: 09/03/17 Date of : 90 Report #: [id number] THIS REPORT FOR: //name// CC: JERRY physician/PCP Tre Mcfadden DATE OF SERVICE: 09/03/2017 CHIEF COMPLAINT: Abscess, right upper extremity. HISTORY OF PRESENT ILLNESS: This is a 27-year-old white female patient who has a history of IV drug abuse and bacterial endocarditis. She was recently in a local skilled nursing for 3-4 weeks. There, she developed redness and swelling in her right arm. She was treated with oral Bactrim as well as a second antibiotic when things did not improve. She was released from skilled nursing. She presented to the Emergency Department. She underwent incision and drainage in the Emergency Department and was admitted to the hospital for ongoing wound care and intravenous antibiotic therapy. PAST MEDICAL HISTORY: Positive for history of methamphetamine and heroin abuse. She has a history of bacterial endocarditis, previous septic shock, pneumonia and anemia. Her last alcohol or drug use was 2 weeks ago. ALLERGIES: None. MEDICATIONS: She is taking an oral antibiotic, the name of which she does not recall at this time. SOCIAL HISTORY: Positive for IV drug abuse as detailed above and cigarette smoking. FAMILY HISTORY: Noncontributory. REVIEW OF SYSTEMS: CONSTITUTIONAL: The patient denies fever, chills or weight loss. NEUROLOGICAL: The patient has focal weakness. EYES: The patient denies visual changes, redness, or drainage. ENT: The patient denies earache, nasal drainage, sore throat. CARDIOVASCULAR: The patient denies chest pain, palpitations, diaphoresis. PULMONARY: The patient denies cough, shortness of breath. GASTROINTESTINAL: The patient denies nausea, diarrhea or abdominal pain. ORTHOPEDIC: The patient does complain of pain, redness and swelling and drainage from her right upper extremity. Other systems, 12-point review of systems are negative. PHYSICAL EXAMINATION: [facility] [address] [place] [address] CONSULTATION Name: BREANNE MORRIS Room #: 443-P [facility] IN [facility]#: [id number] Admission: 09/03/17 Attend Phys: Tre Mcfadden MD Discharge: 09/03/17 Date of : 90 Report #: [id number] VITAL SIGNS: At this time include pulse 127, respiration 16, blood pressure 122/75, temperature 97.7. GENERAL: This is a well-developed, well-nourished female patient, who appears to be in no distress. HEENT: Head normocephalic. Nose and throat are clear. NECK: Supple. LUNGS: Clear. HEART: Regular rhythm. ABDOMEN: Soft. Bowel sounds present. EXTREMITIES: Demonstrate significant swelling and erythema involving the right upper arm laterally. The abscess cavity is just freshly packed with Iodoform gauze. CLINICAL IMPRESSION: 1. An abscess to the right upper arm. 2. History of intravenous drug abuse. 3. History of bacterial endocarditis. RECOMMENDATIONS: At this point in time, the patient will be admitted to the hospital. She is likely to leave against medical advice. I have discussed with her that the risk of developing a more severe infection involving her upper extremity and the possibility of developing recurrent endocarditis is significant and I would recommend that she stay for local wound care and intravenous antibiotic therapy. I do appreciate being asked to see her in consultation. <ELECTRONICALLY SIGNED> By: Neeraj Barajas MD 09/06/17 0835 1733 0209 Neeraj Barajas MD /nt
--- NOTE | ~2017-09-03 | H ---
[facility] [place] [address] HISTORY AND PHYSICAL Name: ARTUROBREANNEBrittany BUNN Room #: 443-P [facility] IN M.R.#: [id number] Admission: 09/03/17 Attend Phys: Tre Mcfadden MD Discharge: 09/03/17 Date of : 90 Report #: [id number] THIS REPORT FOR: //name// CC: JERRY physician/PCP Tre Mcfadden DATE OF SERVICE: 09/03/2017 CHIEF COMPLAINT: Swelling, redness and pain in her right arm. HISTORY OF PRESENT ILLNESS: The patient is a 27-year-old female with history of drug abuse, history of endocarditis in 12/2016, substance abuse, presented to the Emergency Room complaining of swelling, pain and redness in the right upper extremity. Symptoms started around a week ago. The patient has been incarcerated and has been in the group home for the last 2 weeks. She noticed swelling and redness a week ago. The patient was released yesterday, and she presented back to the emergency room today. In the Emergency Room, she was noticed to have an abscess that was drained. PAST MEDICAL HISTORY: Significant for meth and heroin abuse, bacterial endocarditis, pneumonia, septic shock, anemia. The patient's last alcohol or drug abuse was 2 weeks ago, history of hepatitis, history of PE, metabolic encephalopathy, MSSA endocarditis with paraspinal myositis in the past. ALLERGIES: No known drug allergy. HOME MEDICATIONS: She is taking antibiotic, but she does not know the name. SOCIAL HISTORY: Smokes cigarettes. Does have alcohol abuse, history of IV drug abuse, heroin abuse in the past. FAMILY HISTORY: Noncontributory and nonsignificant at present. REVIEW OF SYSTEMS: CONSTITUTIONAL: No recent weight loss, weight gain. Has had some low-grade fever. EYES: No change in vision. THROAT: Denies any sore throat. CARDIOVASCULAR: No chest pain, dizziness, palpitations. RESPIRATORY: No cough or expectoration. GASTROINTESTINAL: No nausea or vomiting. GENITOURINARY: No dysuria, hematuria. NEUROLOGIC: No focal numbness or weakness of the extremities. PSYCHIATRIC: No anxiety or depression. A 12-point review of system is negative other than the positive and negative [facility] [address] [place] [address] HISTORY AND PHYSICAL Name: BREANNE MORRIS Room #: 443-P [facility] IN [facility]#: [id number] Admission: 09/03/17 Attend Phys: Tre Mcfadden MD Discharge: 09/03/17 Date of : 90 Report #: [id number] dictated in the history of present illness and the review of system. PHYSICAL EXAMINATION: VITAL SIGNS: Blood pressure 128/84, heart rate of 110 per minute, afebrile. GENERAL: The patient is awake and alert, not in acute respiratory distress. EYES: Pupils equal, reactive to light, nonicteric conjunctivae. NECK: Supple, no JVD, no bruit, no lymphadenopathy. CARDIOVASCULAR SYSTEM: S1, S2, negative S3, no murmur. CHEST: Bilateral air entry present. Clear on auscultation. ABDOMEN: Soft, bowel sounds present, no mass, no organomegaly, no tenderness. PERIPHERY: No pedal edema. No calf tenderness. Dorsalis pedis 1+. NEUROLOGICAL: No gross motor or sensory deficit. Right thumb has diffuse swelling. There is opening around 3 cm with a gauze in place. There is erythema noted and tenderness noted with drainage. LABORATORY DATA: Reviewed. White count is 16, hemoglobin is 11, platelet is 253. Sodium is 133, potassium 3.2. Lactic acid is 1. ASSESSMENT AND PLAN: 1. Cellulitis and abscess in the right upper extremity. Status post incision and drainage in the Emergency Room. 2. The patient will be continued on IV Zosyn and vancomycin. Infectious Disease has been consulted. 3. We will follow cultures and adjust his antibiotic as needed. 4. Hyponatremia. We will continue with normal saline. Repeat labs in the morning. 5. Hypokalemia. Potassium has been replaced. We will recheck in the morning. 6. History of IV drug abuse in the past. 7. History of endocarditis, MSSA last year. The patient will be placed on SCD on the leg for DVT prophylaxis. Treatment plan has been explained to the patient in detail. The patient will be continued on Toradol for pain control. <ELECTRONICALLY SIGNED> By: Tre Mcfadden MD 09/03/17 1859 1357 1429 Tre Mcfadden MD /nt
--- NOTE | ~2017-09-03 | HC ---
[facility] [place] [address] CONSULTATION Name: ARTUROBREANNEBrittany BUNN Room #: 443-P [facility] IN M.R.#: [id number] Admission: 09/03/17 Attend Phys: Tre Mcfadden MD Discharge: 09/03/17 Date of : 90 Report #: [id number] THIS REPORT FOR: //name// CC: JERRY physician/PCP Tre Mcfadden REASON FOR CONSULTATION: Evaluation concerning right upper arm soft tissue abscess. HISTORY OF PRESENT ILLNESS: The patient was a 27-year-old IV drug user with tricuspid valve endocarditis and multiple septic emboli treated last year. Cultures revealed Staph aureus. I have not seen the patient in several months. Her last admission was in June of 2017 for back pain. She continues to use heroin. She has been incarcerated for the last 2 weeks, actually got out yesterday. She has noted over the last week to 10 days increased pain, swelling in her right deltoid region. She stated she was on 2 oral antibiotics, Bactrim being 1 for the last week without improvement. Started having fevers today. Notes increased pain. Presented to the Emergency Room with temperature 38 degrees, hemodynamically stable. She had an I and D performed at the bedside. Denies any cough or sputum production. No shortness of breath. Denies any GI or complaints. ALLERGIES: None. MEDICATIONS: As noted on OCT, which were reviewed. PAST MEDICAL HISTORY: IV drug use, hepatitis, pneumonia, PE, septic emboli, methicillin-susceptible Staph aureus endocarditis with L3-L4, S1-S2 diskitis and paraspinal myositis. FAMILY HISTORY: Noncontributory. SOCIAL HISTORY: Smoker of cigarettes and heroin user, no significant alcohol intake. REVIEW OF SYSTEMS: Noted above. PHYSICAL EXAMINATION: VITAL SIGNS: Afebrile, hemodynamically stable. GENERAL: She is alert and cooperative. HEENT: Unremarkable other than piercings. NECK: Supple, no adenopathy. Right upper outer arm had abscess which has just been drained and packed. Surrounding cellulitis, induration and diffuse tenderness. Pulses in the wrist were normal. Sensation in the hand normal. LUNGS: Clear. HEART: Regular with a 1/6 systolic murmur, right sternal border. ABDOMEN: Soft, mild tenderness in the right upper quadrant. [address] [address] CONSULTATION Name: BREANNE MORRIS ONI Room #: 443-P [facility] IN .R.#: [id number] Admission: 09/03/17 Attend Phys: Tre Mcfadden MD Discharge: 09/03/17 Date of : 90 Report #: [id number] hepatosplenomegaly or mass appreciated. EXTREMITIES: Unremarkable. LABORATORY STUDIES: Wound and blood cultures are pending. Lactate 1. Sodium 133, potassium 3.2, bicarbonate 27, creatinine 0.7. Beta hCG negative. Hemoglobin 11, WBC 16, platelet count 253,000. IMPRESSION: Soft tissue infection, right upper arm. I am suspecting injection from drugs in this region, although the patient denies it. No other trauma identified. Would recommend continuing IV antibiotic therapy pending wound and blood cultures. Once we have the organism identified, I can transition to outpatient treatment. <ELECTRONICALLY SIGNED> By: Lloyd Brewster MD 09/06/17 [id number] Lloyd Brewster MD /nt
[2017-09-03 06:25] VITALS: BP 104/59
[2017-09-03 07:47] LABS: ABSOLUTE NEUTROPHILS 13.1 thou/uL (1.4-8.2); BASOPHILS 0.1 % (0.0-2.0); EOSINOPHILS 0.9 % (0.0-3.0); HEMATOCRIT 31.7 % (37.0-47.0); LYMPHOCYTES 13.7 % (24.0-44.0); MCH 29.7 pg (26.0-34.0); MCHC 34.7 g/dL (28.0-37.0); MCV 85.6 fL (80.0-100.0); MONOCYTES 6.4 % (1.0-8.0); PLATELET COUNT 253 thou/uL (150-400); POLYS 78.9 % (36.0-66.0); WBC 16.6 thou/uL (4.0-11.0)
[2017-09-03 07:55] LABS: CALCIUM 8.8 mg/dL (8.5-10.1); CREATININE 0.7 mg/dL (0.6-1.0); POTASSIUM 3.2 mmol/L (3.5-5.1)
[2017-09-03 13:08] VITALS: BP 128/84
[2017-09-03 15:14] VITALS: BP 122/75
[2017-09-03 15:20] VITALS: BP 122/75
[2017-09-04] MEDS ORDERED: BACTRIM DS TAB1 EACH PO (19:04)
[2018-03-31] MEDS ORDERED: CLEOCIN HCL150 MG PO (22:13)
== END 2017-09-03 16:45 | disposition left against medical advice (07) | DRG 603 ==
LOC: ER 06:18 → EROBS 08:24 → 4S 16:04
PROVIDERS: Emergency Medicine
DX: L03.113 Cellulitis of right upper limb (principal); E87.1 Hypo-osmolality and hyponatremia; L02.413 Cutaneous abscess of right upper limb; E87.6 Hypokalemia; F17.210 Nicotine dependence, cigarettes, uncomplicated; G89.29 Other chronic pain; Z87.01 Personal history of pneumonia (recurrent)
CPT/HCPCS: 10100

== ENCOUNTER 2017-09-04 15:04 | Emergency (ER) | payer OTHER ==
[~2017-09-04] VITALS: Ht 157.5 cm; Wt 54.4 kg
[2017-09-04 15:10] VITALS: BP 119/78
[2017-09-04 16:23] LABS: AMP/METHAMP POSITIVE (Negative); BARBITURATES Negative (Negative); BENZODIAZEPINES POSITIVE (Negative); COCAINE Negative (Negative); METHADONE Negative (Negative); OPIATES POSITIVE (Negative); PCP Negative (Negative)
[2017-09-04] MEDS ORDERED: BACTRIM DS TAB1 EACH PO (19:04)
[2018-03-31] MEDS ORDERED: CLEOCIN HCL150 MG PO (22:13)
== END 2017-09-04 17:04 | disposition left against medical advice (07) ==
LOC: ER 15:04
PROVIDERS: Emergency Medicine
DX: L03.113 Cellulitis of right upper limb (principal); F32.9 Major depressive disorder, single episode, unspecified; F41.9 Anxiety disorder, unspecified; F17.210 Nicotine dependence, cigarettes, uncomplicated; Z86.711 Personal history of pulmonary embolism; Z91.040 Latex allergy status

== ENCOUNTER 2017-09-04 17:39 | Emergency (ER) | payer OTHER ==
[~2017-09-04] VITALS: Ht 157.5 cm; Wt 59.0 kg
[2017-09-04 17:46] VITALS: BP 124/81
[2017-09-04] MEDS ORDERED: BACTRIM DS TAB1 EACH PO (19:04)
[2018-03-31] MEDS ORDERED: CLEOCIN HCL150 MG PO (22:13)
== END 2017-09-04 19:45 | disposition home or self-care (01) ==
LOC: ER 17:39
DX: L03.113 Cellulitis of right upper limb (principal); L02.413 Cutaneous abscess of right upper limb; F32.9 Major depressive disorder, single episode, unspecified; F41.9 Anxiety disorder, unspecified; F15.10 Other stimulant abuse, uncomplicated; F17.210 Nicotine dependence, cigarettes, uncomplicated; Z91.040 Latex allergy status; Z86.711 Personal history of pulmonary embolism